=== PATIENT | male | born 1985 | race Caucasian/White ===

== ENCOUNTER 2020-04-17 15:25 | Emergency (ER) | payer OTHER ==
[~2020-04-17] VITALS: Ht 175.3 cm; Wt 82.0 kg
[2020-04-17] MEDS ORDERED: IV NORMAL SALINE 1,000ML 1,000 ML IV SCH (15:40)
[2020-04-17 15:44] VITALS: BP 123/66
[2020-04-17] MEDS ORDERED: FAMOTIDINE 20 MG/2 ML VIAL IVP ONE (15:45)
[2020-04-17] MEDS ORDERED: methylPREDNISolone SOD SUCC PF 125 MG/2 ML VIAL. IV ONE (15:45)
--- NOTE | 2020-04-17 15:50 | PHYS DOC ---
Past History Past Medical History: No Pertinent History Adult General HPI HPI Patient is a 34-year-old male who presents for allergic reaction. Onset was 45 minutes prior to arrival when patient was stung by a bee on the ventral surface of his left hand in between the second and third knuckle space. Patient went back inside, took 50 mg of p.o. Benadryl, and due to progressive worsening of hives, was transported to [facility] ED for further evaluation. Similar allergic reactions have occurred in the past from fire ants. He has never required the use of an EpiPen. He has no previous history of anaphylaxis. He has no known medical issues, no known medication allergies. He denies any recent febrile illness or known COVID-19 exposure Review of Systems Review of Systems Positive pain to ventral portion of right hand, hives, pruritus generalized, lightheadedness Denies shortness of breath, airway compromise, chest pain Fourteen body systems of review of systems have been reviewed. See HPI for pertinent positives and negative responses, other rojas all other systems are negative, non-pertinent or non-contributory Physical Exam Physical Exam Constitutional: Well developed, well nourished, moderate distress, generalized hives noticeable on all 4 extremities and torso non-toxic appearance. [] HENT: Normocephalic, atraumatic, bilateral external ears normal, nose normal. No oropharyngeal abscesses, swelling, or other concerning signs of potential airway compromise [] Eyes: PERRLA, conjunctiva normal, no discharge. [] Neck: Normal range of motion, no stridor. [] Cardiovascular:Heart rate regular rhythm Lungs & Thorax: Respirations even and unlabored, no retractions, no respiratory distress Abdomen: soft, no tenderness Skin: Warm, dry, no erythema, pruritic generalized red rash in diffuse hives. Localized area of inoculation from bee sting on dorsal portion of left hand in between the second and third knuckle space [] Extremities: No cyanosis, ROM intact, no edema. [] Neurologic: Alert and oriented X 3, no focal deficits noted. [] Psychologic: Affect normal, judgement normal, anxious mood. [] EKG EKG [] Radiology/Procedures Radiology/Procedures [] Course & Med Decision Making Course & Med Decision Making Patient seen and evaluated by myself on immediate ED arrival Vital signs stable, comprehensive history and physical exam consistent with acute allergic reaction IV access obtained, IV Pepcid, normal saline, and Solu-Medrol. No IV Benadryl administered given patient self administered 50 mg p.o. Benadryl prior to arrival Patient observed in ED moderate improvement in symptoms Case discussed at length. Discussed fact that initial bee sting occurred greater than 2 hours ago in likelihood of potential anaphylaxis was extremely low Given severity of patient's allergic reaction, joint decision was made to continue p.o. steroid burst in outpatient setting with as needed use of Benadryl Permanent marker marked outline of left hand near bee sting to monitor for erythema progression. Discussed low likelihood of secondary skin infection but that it was possible Strict return precautions were discussed with patient at length with good understanding, all questions and concerns addressed prior to discharge Patient to follow-up with PCP in upcoming 3 to 6 days for ED follow-up Chavo Disclaimer Chavo Disclaimer This electronic medical record was generated, in whole or in part, using a voice recognition dictation system. Departure Departure: Impression: Primary Impression: Allergic reaction to bee sting Disposition: HOME/RESIDENCE PRIOR TO ADM Condition: IMPROVED Referrals: PCP,MIKE (PCP) Please call your PCP first thing Sunday morning to schedule outpatient follow-up in upcoming 3 to 6 days Discussed need for EpiPen prescription Patient Instructions: Bee, Wasp, or Hornet Sting Additional Instructions: You have been evaluated in the Emergency Department today for your allergic reaction. You have been given medications including steroids, Pepcid and IV fluids to control your swelling. You have been observed in the Emergency Department and it appears that your symptoms will not return. Please follow up with your primary care physician as needed. If you do not have a primary doctor, you can call your insurance company to find one. If you do not have insurance, you can go to the finance/registration department for more assistance. Return to the Emergency Department if you experience difficulty breathing or swallowing, recurrent vomiting, rashes, lip/mouth/tongue swelling, persistent fevers or for any other concerning symptoms. Scripts Prednisone (PREDNISONE) 20 Mg Tablet 40 MG PO DAILY for allergic reaction for 5 Days, #10 TAB Prov: AMANUEL REINOSO DO 04/17/20 Justification of Admission: Justification of Admission: Justification of Admission Dx: N/A AMANUEL REINOSO DO Apr 17, 2020 15:50
[2020-04-17] MEDS ORDERED: PRED20TA PO (17:24)
== END 2020-04-17 17:28 | disposition home or self-care (01) ==
LOC: ER 15:25
DX: T63.441A Toxic effect of venom of bees, accidental (unintentional), initial encounter (principal); R42 Dizziness and giddiness; Y92.89 Other specified places as the place of occurrence of the external cause
CPT/HCPCS: 96361; 96374; 96375; 99284; J2930; J3490; J7030